=== PATIENT | male | born 1985 | race African-American/Black ===

== ENCOUNTER → 2023-05-06 | Outpatient (CLI) | payer OTHER ==
[~2023-05-06] MED LIST: ISOVUE-300 61% 100ML VIAL As Ordered ONE; LIDOCAINE 1% MDV 20ML VIAL As Ordered ONE; PROHANCE 279.3MG/ML 5ML VIAL As Ordered ONE
== END ==
LOC: M RAD 12:23
PROVIDERS: ATTEND Orthopaedic Surgery
DX: S43.431A Superior glenoid labrum lesion of right shoulder, initial encounter (principal); X58.XXXA Exposure to other specified factors, initial encounter; Y92.9 Unspecified place or not applicable
CPT/HCPCS: 23350; 73223; 77002; A9576; Q9967

== ENCOUNTER 2024-01-06 20:53 | Emergency (ER) | payer OTHER ==
[~2024-01-06] VITALS: Ht 167.6 cm; Wt 85.1 kg
[~2024-01-06 20:53] MED LIST changes: +ATOR40TA75; +D 50CAP2; -ISOVUE-300 61% 100ML VIAL As Ordered ONE; -LIDOCAINE 1% MDV 20ML VIAL As Ordered ONE; -PROHANCE 279.3MG/ML 5ML VIAL As Ordered ONE; +TIZA10TA
[2024-01-06 22:30] VITALS: BP 158/96; TEMP 98; O2SAT 98
[2024-01-06] MEDS ORDERED: TOBRSUS39 OS (23:13)
[2024-01-06] MEDS: FLUORESCEIN OPHTH 1MG STRIP OU ONE (23:36)
[2024-01-06] MEDS: TOBRADEX OPHTH SUSP 2.5 ML OS ONE (23:36)
[2024-01-06] MEDS: TETRACAINE 0.5% OPHTH SOLN 4ML OU ONE (23:36)
== END 2024-01-06 23:37 | disposition home or self-care (01) ==
LOC: M ED 20:53
DX: H10.32 Unspecified acute conjunctivitis, left eye (principal); E78.5 Hyperlipidemia, unspecified; Z79.899 Other long term (current) drug therapy; Z79.2 Long term (current) use of antibiotics